=== PATIENT | female | born 1965 | race Caucasian/White ===

== ENCOUNTER → 2016-10-12 | Outpatient (CLI) | payer OTHER | LOC: KOH-I 14:33 | DX: R05 Cough (principal) | CPT/HCPCS: 71020 ==

== ENCOUNTER → 2021-04-20 | Outpatient (CLI) | payer OTHER ==
[~2021-04-20] MED LIST: NAPROSYN500 MG PO; NORFLEX 100 MG100 MG PO; ZOFRAN4 MG PO
== END ==
LOC: KOH-I 09:10
DX: K29.70 Gastritis, unspecified, without bleeding (principal); R14.0 Abdominal distension (gaseous)
CPT/HCPCS: 74019

== ENCOUNTER → 2021-07-11 | Outpatient (CLI) | payer OTHER | LOC: KOH-I 09:22 | DX: N20.0 Calculus of kidney (principal); R14.3 Flatulence | CPT/HCPCS: 74018 ==

== ENCOUNTER → 2021-09-25 | Outpatient (CLI) | payer OTHER | LOC: KOH-I 11:51 | DX: N20.0 Calculus of kidney (principal) | CPT/HCPCS: 74018 ==